=== PATIENT | female | born 1930 | race Caucasian/White ===

== ENCOUNTER 2017-05-05 11:21 | Inpatient (IN) ==
[2017-05-05] MEDS ORDERED: ALBUTEROL/IPRATROPIUM 3 ML NEB RESP TX PRN (11:27)
[2017-05-05] MEDS ORDERED: ACETAMINOPHEN 325 MG TABLET PO PRN (11:27)
--- NOTE | 2017-05-05 12:03 | Pulmonology History & Physical ---
History of Present Illness Chief complaint: acute bronchitis with bronchospasm, outpt tx failure, SOB and wheezing History of present illness: SAMUEL Adams acting as scribe for Dr. Kishor Willoughby. Ms. Schwartz is a 86 year old /White female admitted today 05/05/17 as a direct admit [place] [facility] She presented to her PCP Dr. Sims office today with severe acute shortness of breath and wheezing that had acutely worsened early this AM. Dr. Sims consulted Dr. Willoughby as she is a patient of myself and Dr. Willoughby for pulmonary. Upon chest exam in the clinic she was found to have severe restricted air movement throughout with severe inspiratory and expiratory wheezing and accessory muscle use. She has been treated by Dr. Willoughby and myself as an outpatient for bronchitis since the beginning of this month with 2 rounds of antibiotics including Zithromax and Ceftin, along with steroids, breathing treatments, mucinex, and singulair. Patient reports she was improved until about 2 days ago she began coughing up yellow thick sputum again and acutely worsened this morning unable to produce any sputum so she came as a walk in to see Dr. Sims. Due to the severity of her symptoms combined with her past medical history and recent outpatient treatment decision was made to admit today to inpatient for further evaluation and treatment. She denies any cardiac angina, palpitations, reflux, dysphagia, syncope or near syncope, bleeding from any site, and symptoms of TIA. The remainder of the review of systems is negative. ALLERGIES: NO KNOWN DRUG ALLERGIES Home Medicines: ASA 81mg daily, Calcium 1,250mg daily, Clonazepam 1mg at bedtime , Vitamin B12 1,000mcg injection monthly, Fish Oil 500-100mg daily, Flonase nasal spray 1 spray each nostril daily, Gabapentin 300mg daily, Hydrochlorothiazide 25mg daily, Hyzaar 50-12.5mg daily, Lidoderm 5% topical patch daily, Multivitamin daily, Primidone 100mg TID, Propanolol 20mg BID, Ventolin HFA 1 puff every 6 hours as needed, Vitamin D 2,000units daily, Duoneb inhalation treatments QID PRN, Prednisone 10mg every other day, Singulair 5mg daily, Tessalon Perles 200mg TID PRN, Mucinex 600mg BID. Past History: COPD/Asthma. Hiatal hernia. Hyperlipidemia. Hypertension. Osteopenia. Peripheral sensory neuropathy. Pulmonary Hypertension. Restless legs syndrome. Central and peripheral tremor. Osteoporosis based on bone density studies done in September 2015. Appendectomy. Allergic sinusitis. Degenerative joint disease. Bronchospastic disease. Pernicious anemia secondary to B12 deficiency. Family History: Her mother had an [place]. Social History: She was a smoker previously. She quit smoking in 1965. She smoked less than 1/2PPD. She is . She denies alcohol. Labs and CXR are pending. Exam (Pulmonay) H&P - Constitutional Exam: Psychiatric: Awake, alert oriented x 3. Acutely ill appearing. Neurological: Cranial nerves intact with decreased hearing acuity bilaterally. Long tract motor function is intact. Sensory and gait were not tested. HEENT: Pupils, irises, sclera, conjunctiva and eyelids are normal. The face is symmetrical with no rash and no masses. Nares normal. Nasal tubinates are erythematous and swollen. Ears deferred. Lips, tongue, pharynx, oral mucosa normal. Neck: Symmetrical and kyphotic. Thyroid was not palpated. Lymphatic: there is no submandibular, cervical, supraclavicular, or epitrochlear adenopathy. Chest: Chest is symmetrical and kyphotic. She severely restricted air movement throughout with prominent inspiratory and expiratory wheezing throughout. Accessory muscle use noted with breathing. Heart: Regular rate and rhythm. No murmurs or gallops. Abdomen: Nontender, nondistended, no appreciable organomegaly. Bowel sounds normal. Musculoskeletal: Age appropriate loss of the normal curvature of the cervical thoracic and lumbar spine. Extremities: No clubbing edema or evidence of deep venous thrombophlebitis. Arterial exam: Carotids decreased. No bruits. Upper and lower extremity pulses palpable. Venous exam: Normal. Skin: Skin of the exposed examined areas no cancerous or infectious lesions. Multiple areas of purpura present on the dorsum of both upper extremities. The remainder of the physical exam is negative. Impression: 1. Acute bronchitis with bronchospasm, refractory to outpatient treatment. 2. Severe shortness of breath and wheezing secondary to #1. 3. Bronchospastic airway disease. 4. History of COPD/Asthma. 5. Hypertension 6. Central and peripheral tremor. 7. See past history. Plan: 1. Admit to inpatient for further evaluation and treatment. 2. IV Aminophyllin bolus 125mg over 4 hours then 8mg/hr continuous. Theophylline level daily. 3. IV Levaquin and Fortaz due to outpt tx failure. 4. Sputum for gram stain C&S, Legionella, Cold agglutinins, Labs as ordered. 5. CXR today, repeat Monday. 6. ID and continue home meds. 7. See orders.
[2017-05-05 12:47] LABS: Basophils % 0.7 % (0.0-0.8); Eosinophils # 0.7 10*3/uL (0.0-0.87); Eosinophils % 12.4 % (0.00-10.9); Hematocrit 34.8 VOL% (35.7-47.0); Hemoglobin 11.8 GM/DL (12.0-16.0); Immature Granulocytes % 0.4 %; Immature Granulocytes Absolute 0.02 #; Lymphocytes # 1.1 10*3/uL (1.4-4.0); Mean Corpuscular HGB Conc 33.9 GM/DL (32-36); Mean Corpuscular Hemoglobin 33 PG (27-34); Mean Corpuscular Volume 96.9 FL (87-102); Mean Platelet Volume 9.6 FL (9.6-12.0); Monocytes # 0.5 10*3/uL (0.11-0.8); Monocytes % 8.3 % (1.7-12.7); Neutrophils # 3.3 10*3/uL (1.4-7.4); Neutrophils % 58.2 % (38.7-73.9); Platelet Count 267 T/CUMM (130-400); Red Blood Count 3.59 MC/CUMM (3.8-5.5); Red Cell Distribution Width 12.4 % (9.3-17.3); White Blood Count 5.7 T/CUMM (4-12)
[2017-05-05 13:28] LABS: Alanine Aminotransferase 21 U/L (13-56); Albumin 3.4 G/DL (3.4-5.0); Alkaline Phosphatase 88 U/L (45-117); Aspartate Amino Transferase 18 U/L (0-37); Bilirubin,Total < 0.39 MG/DL (0.2-1.0); Blood Urea Nitrogen 16 MG/DL (7-18); Calcium 8.8 MG/DL (8.5-10.1); Glucose 113 MG/DL (74-106); Magnesium 2.1 MG/DL (1.8-2.4); Osmolality,Calculated 267.4 MOS/KG (273-304); Potassium 3.9 MMOL/L (3.5-5.1); Sodium 133 MMOL/L (136-145); Total Protein 6.5 G/DL (6.4-8.3)
[2017-05-05] MEDS ORDERED: AMINOPHYLLINE 125 MG in SODIUM CHLORIDE 0.9% 100 ML IV ONE (13:30)
[2017-05-05] MEDS: ALBUTEROL/IPRATROPIUM 3 ML NEB RESP TX SCH ×2 (13:53→19:03)
[2017-05-05] MEDS: methylPREDNISolone SOD SUC 125 MG/2 ML VIAL IV SCH ×2 (14:15→23:57)
[2017-05-05] MEDS: LEVOFLOXACIN INJ 250 MG in PREMIX 1 EACH IV SCH (14:16)
--- NOTE | 2017-05-05 14:16 | EKG Report ---
Stationary ECG Study [facility] Test Date: 05/05/2017 2:15:03 PM Pat Name: YOAN BARRETT Department: Room: 533 Gender: F Buffing Machine Operator: : [id number] Requested by: Ramses Givens Order Number: [id number] Reading MD: TR NAVA Intervals [place] Rate: 60 P: 64 WY: 130 QRS: 69 QRSD: 97 T: 78 QT: 376 QTc: 376 Interpretive Statements SINUS RHYTHM POSSIBLE RIGHT VENTRICULAR CONDUCTION DELAY MODERATE ST DEPRESSION Electronically Signed On 05-05-17 19:16:02 CDT by TR NAVA [email or web address]
[2017-05-05] MEDS: MONTELUKAST 10 MG TABLET PO SCH (14:26)
--- NOTE | 2017-05-05 14:59 | XRay Report ---
Chest, 2 views History is short of breath The heart is mildly enlarged The lungs are diffusely hyperexpanded. Patient is rotated exaggerating hilar contours nodular density in the right infrahilar region likely a vein seen on prior CT. No corresponding density seen on the lateral film. No confluent infiltrate is seen. Impression: 1. Mild cardiomegaly 2. Pulmonary hyperexpansion without acute infiltrate PROCEDURE INTERPRETED AT [facility] DEPARTMENT OF RADIOLOGY Final Report Signed by: Dr. Sharonda Michael
[2017-05-05] MEDS: AMINOPHYLLINE 500 MG in SODIUM CHLORIDE 0.9% 480 ML IV SCH (17:42)
[2017-05-05] MEDS: PRIMIDONE 50 MG TABLET PO SCH ×2 (17:43→21:36)
[2017-05-05 17:52] LABS: Apearance,Urine CLEAR (Clear); Bilirubin,Urine Negative (Negative); Blood, Urine Negative (Negative); Glucose,Urine (UA) Negative (Negative); Ketones,Urine Negative (Negative); Nitrite,Urine Negative (Negative); Protein,Urine Negative; RBC,Urine <1 /HPF (0-4); Squamous Epithelial Cell,Urine Occasional /HPF (0-10); Urine Color Straw (Yellow); Urine Specific Gravity 1.004 (1.001-1.035); Urine Urobilinogen < 2.0 EU/DL (0.2-1.0); WBC,Urine <1 /HPF (0-6)
[2017-05-05 18:16] LABS: Eosinophils 9 % (0-10); Lymphocytes 12 % (20-55); Platelet Estimate Normal; Segmented Neutrophils 77 % (50-85); Total Cells Counted 100
[2017-05-05] MEDS: clonazePAM 0.5 MG TABLET PO SCH (21:30)
[2017-05-05] MEDS: PROPRANOLOL 20 MG TABLET PO SCH (21:30)
[2017-05-06] MEDS: AMINOPHYLLINE 500 MG in SODIUM CHLORIDE 0.9% 480 ML IV SCH ×2 (06:00→17:28)
[2017-05-06 06:45] LABS: Basophils % 0.2 % (0.0-0.8); Eosinophils # 0.1 10*3/uL (0.0-0.87); Eosinophils % 0.8 % (0.00-10.9); Hematocrit 31.5 VOL% (35.7-47.0); Hemoglobin 11.2 GM/DL (12.0-16.0); Immature Granulocytes % 0.5 %; Immature Granulocytes Absolute 0.03 #; Lymphocytes # 0.9 10*3/uL (1.4-4.0); Lymphocytes % 13.3 % (21.3-54.2); Mean Corpuscular HGB Conc 35.6 GM/DL (32-36); Mean Corpuscular Hemoglobin 33 PG (27-34); Mean Corpuscular Volume 93.8 FL (87-102); Mean Platelet Volume 10.4 FL (9.6-12.0); Monocytes # 0.2 10*3/uL (0.11-0.8); Monocytes % 2.9 % (1.7-12.7); Neutrophils # 5.3 10*3/uL (1.4-7.4); Neutrophils % 82.3 % (38.7-73.9); Platelet Count 235 T/CUMM (130-400); Red Blood Count 3.36 MC/CUMM (3.8-5.5); Red Cell Distribution Width 12.1 % (9.3-17.3); White Blood Count 6.5 T/CUMM (4-12)
[2017-05-06 07:26] LABS: Calcium 8.4 MG/DL (8.5-10.1); Osmolality,Calculated 262.7 MOS/KG (273-304); Potassium 4.2 MMOL/L (3.5-5.1)
[2017-05-06] MEDS: ALBUTEROL/IPRATROPIUM 3 ML NEB RESP TX SCH ×4 (07:30→20:30)
[2017-05-06] MEDS: MULTIVITAMIN (BEROCCA) TABLET PO SCH (09:16)
[2017-05-06] MEDS: LOSARTAN/HCTZ 50-12.5 MG TABLET PO SCH (09:16)
[2017-05-06] MEDS: hydroCHLOROthiazide 25 MG TABLET PO SCH (09:16)
[2017-05-06] MEDS: ASPIRIN EC 81 MG TABLET PO SCH (09:16)
[2017-05-06] MEDS: PRIMIDONE 50 MG TABLET PO SCH ×3 (09:16→20:40)
[2017-05-06] MEDS: FLUTICASONE 50 MCG NASAL SPRAY 16 GM BOTTLE BOTH NARES SCH (09:16)
[2017-05-06] MEDS: MONTELUKAST 10 MG TABLET PO SCH (09:16)
[2017-05-06] MEDS: GABAPENTIN 300 MG CAPSULE PO SCH (09:16)
[2017-05-06] MEDS: CALCIUM (CARBONATE)/VITAMIN D 500 MG-200 UNIT TABLET PO SCH (09:16)
[2017-05-06] MEDS: LIDOCAINE 5% PATCH TRANSDERM SCH (09:17)
[2017-05-06] MEDS: PROPRANOLOL 20 MG TABLET PO SCH ×2 (09:17→20:40)
--- NOTE | 2017-05-06 10:48 | Pulmonology Progress Note ---
Pulmonary - PN: Subj Interval history: This 86-year-old female was admitted with exacerbation of COPD and asthma. She does have a history of pulmonary hypertension. She feels a little better today but is still wheezing and coughing. Exam (Progress Note) - Constitutional Vitals: Period Temp Pulse Resp BP Sys/Phoenix Pulse Ox Last 24 Hr 97.3 F-98.5 F 61-77 18-22 111-156/45-79 91-98 Exam: Patient is alert and oriented. Vital signs normal. Pupils react to light. Throat is clear. Neck supple no bruits. Chest reveals some prolonged expiratory phase and mild expiratory wheezing and rhonchi. Heart normal rate and rhythm no murmurs. Abdomen is soft nontender no masses. Extremities no clubbing cyanosis or edema. Calves nontender. Results - Labs CBC & BMP: 05/06/17 06:23 05/06/17 06:23 Lab Results: I have reviewed the past 24 hour labs - Diagnostic Findings Procedure: Chest x-ray: image reviewed by me (Lungs are clear.) Assessment and Plan (1) COPD with acute exacerbation Status: Acute Assessment and plan: Patient will continue on corticosteroids, nebulized bronchodilators, intravenous antibiotics. Also on theophylline. Current Visit: Yes
[2017-05-06] MEDS: methylPREDNISolone SOD SUC 125 MG/2 ML VIAL IV SCH (12:27)
[2017-05-06] MEDS: LEVOFLOXACIN INJ 250 MG in PREMIX 1 EACH IV SCH (14:10)
[2017-05-06] MEDS: clonazePAM 0.5 MG TABLET PO SCH (20:40)
[2017-05-06] MEDS: BENZONATATE 100 MG CAPSULE PO PRN (20:40)
[2017-05-07] MEDS: methylPREDNISolone SOD SUC 125 MG/2 ML VIAL IV SCH ×2 (00:08→12:06)
[2017-05-07 07:06] LABS: Basophils % 0.2 % (0.0-0.8); Eosinophils # 0.1 10*3/uL (0.0-0.87); Eosinophils % 1.1 % (0.00-10.9); Hematocrit 32.5 VOL% (35.7-47.0); Hemoglobin 11.1 GM/DL (12.0-16.0); Immature Granulocytes % 0.5 %; Immature Granulocytes Absolute 0.03 #; Lymphocytes # 0.7 10*3/uL (1.4-4.0); Lymphocytes % 11.8 % (21.3-54.2); Mean Corpuscular HGB Conc 34.2 GM/DL (32-36); Mean Corpuscular Hemoglobin 32 PG (27-34); Mean Corpuscular Volume 94.5 FL (87-102); Mean Platelet Volume 10.4 FL (9.6-12.0); Monocytes # 0.2 10*3/uL (0.11-0.8); Monocytes % 2.4 % (1.7-12.7); Neutrophils # 5.3 10*3/uL (1.4-7.4); Platelet Count 239 T/CUMM (130-400); Red Blood Count 3.44 MC/CUMM (3.8-5.5); Red Cell Distribution Width 12.3 % (9.3-17.3); White Blood Count 6.3 T/CUMM (4-12)
[2017-05-07] MEDS: ALBUTEROL/IPRATROPIUM 3 ML NEB RESP TX SCH ×4 (07:20→19:49)
[2017-05-07 07:41] LABS: Calcium 8.2 MG/DL (8.5-10.1); Osmolality,Calculated 269.2 MOS/KG (273-304); Potassium 4.1 MMOL/L (3.5-5.1)
[2017-05-07] MEDS: MONTELUKAST 10 MG TABLET PO SCH (09:05)
[2017-05-07] MEDS: ASPIRIN EC 81 MG TABLET PO SCH (09:05)
[2017-05-07] MEDS: MULTIVITAMIN (BEROCCA) TABLET PO SCH (09:05)
[2017-05-07] MEDS: CALCIUM (CARBONATE)/VITAMIN D 500 MG-200 UNIT TABLET PO SCH (09:05)
[2017-05-07] MEDS: GABAPENTIN 300 MG CAPSULE PO SCH (09:06)
[2017-05-07] MEDS: PRIMIDONE 50 MG TABLET PO SCH ×3 (09:06→21:39)
[2017-05-07] MEDS: LOSARTAN/HCTZ 50-12.5 MG TABLET PO SCH (09:07)
[2017-05-07] MEDS: PROPRANOLOL 20 MG TABLET PO SCH ×2 (09:07→21:40)
[2017-05-07] MEDS: hydroCHLOROthiazide 25 MG TABLET PO SCH (09:08)
[2017-05-07] MEDS: LIDOCAINE 5% PATCH TRANSDERM SCH (09:08)
[2017-05-07] MEDS: FLUTICASONE 50 MCG NASAL SPRAY 16 GM BOTTLE BOTH NARES SCH (09:10)
--- NOTE | 2017-05-07 10:47 | Pulmonology Progress Note ---
Pulmonary - PN: Subj Interval history: This 86-year-old female was admitted with exacerbation of COPD and asthma. She does have a history of pulmonary hypertension. She feels a little better today but is still wheezing and coughing. 05/07/2017 patient is still having some bronchospasm. Her theophylline level is quite low when I will double the dose. Recheck theophylline level tomorrow. Still on a low dose. Exam (Progress Note) - Constitutional Vitals: Period Temp Pulse Resp BP Sys/Phoenix Pulse Ox Last 24 Hr 96.4 F-98.1 F 54-79 18-20 117-155/56-79 91-98 Exam: Patient is alert and oriented. Vital signs normal. Pupils react to light. Throat is clear. Neck supple no bruits. Chest reveals some prolonged expiratory phase and mild expiratory wheezing and rhonchi. Heart normal rate and rhythm no murmurs. Abdomen is soft nontender no masses. Extremities no clubbing cyanosis or edema. Calves nontender. Results - Labs CBC & BMP: 05/07/17 05:44 05/07/17 05:44 Lab Results: I have reviewed the past 24 hour labs Assessment and Plan (1) COPD with acute exacerbation Status: Acute Assessment and plan: Patient will continue on corticosteroids, nebulized bronchodilators, intravenous antibiotics. Also on theophylline. 05/07/2017 patient still having some expiratory rhonchi and wheezes. Increase Aminophyllin. Theophylline level was quite low Current Visit: Yes
[2017-05-07] MEDS: LEVOFLOXACIN INJ 250 MG in PREMIX 1 EACH IV SCH (14:42)
[2017-05-07] MEDS: AMINOPHYLLINE 500 MG in SODIUM CHLORIDE 0.9% 480 ML IV SCH (15:59)
[2017-05-07] MEDS: clonazePAM 0.5 MG TABLET PO SCH (21:42)
[2017-05-07] MEDS: BENZONATATE 100 MG CAPSULE PO PRN (21:59)
[2017-05-08] MEDS: methylPREDNISolone SOD SUC 125 MG/2 ML VIAL IV SCH ×3 (00:20→23:41)
[2017-05-08 06:45] LABS: Basophils % 0.3 % (0.0-0.8); Eosinophils # 0.2 10*3/uL (0.0-0.87); Eosinophils % 2.3 % (0.00-10.9); Hematocrit 35.1 VOL% (35.7-47.0); Hemoglobin 11.9 GM/DL (12.0-16.0); Immature Granulocytes % 0.4 %; Immature Granulocytes Absolute 0.03 #; Lymphocytes # 0.9 10*3/uL (1.4-4.0); Lymphocytes % 12.4 % (21.3-54.2); Mean Corpuscular HGB Conc 33.9 GM/DL (32-36); Mean Corpuscular Hemoglobin 32 PG (27-34); Mean Corpuscular Volume 95.6 FL (87-102); Mean Platelet Volume 10.1 FL (9.6-12.0); Monocytes # 0.2 10*3/uL (0.11-0.8); Monocytes % 2.9 % (1.7-12.7); Neutrophils % 81.7 % (38.7-73.9); Platelet Count 267 T/CUMM (130-400); Red Blood Count 3.67 MC/CUMM (3.8-5.5); Red Cell Distribution Width 12.5 % (9.3-17.3); White Blood Count 7.3 T/CUMM (4-12)
[2017-05-08 07:13] LABS: Calcium 8.6 MG/DL (8.5-10.1); Osmolality,Calculated 274.8 MOS/KG (273-304); Potassium 4.4 MMOL/L (3.5-5.1)
[2017-05-08] MEDS: ALBUTEROL/IPRATROPIUM 3 ML NEB RESP TX SCH ×4 (07:37→19:25)
[2017-05-08] MEDS: MONTELUKAST 10 MG TABLET PO SCH (09:06)
[2017-05-08] MEDS: LIDOCAINE 5% PATCH TRANSDERM SCH (09:06)
[2017-05-08] MEDS: MULTIVITAMIN (BEROCCA) TABLET PO SCH (09:07)
[2017-05-08] MEDS: LOSARTAN/HCTZ 50-12.5 MG TABLET PO SCH (09:07)
[2017-05-08] MEDS: hydroCHLOROthiazide 25 MG TABLET PO SCH (09:07)
[2017-05-08] MEDS: CALCIUM (CARBONATE)/VITAMIN D 500 MG-200 UNIT TABLET PO SCH (09:07)
[2017-05-08] MEDS: PROPRANOLOL 20 MG TABLET PO SCH ×2 (09:07→20:16)
[2017-05-08] MEDS: PRIMIDONE 50 MG TABLET PO SCH ×3 (09:08→20:16)
[2017-05-08] MEDS: GABAPENTIN 300 MG CAPSULE PO SCH (09:08)
[2017-05-08] MEDS: FLUTICASONE 50 MCG NASAL SPRAY 16 GM BOTTLE BOTH NARES SCH (09:08)
[2017-05-08] MEDS: ASPIRIN EC 81 MG TABLET PO SCH (09:08)
--- NOTE | 2017-05-08 11:14 | Pulmonology Progress Note ---
Pulmonary - PN: Subj Interval history: Spencer Ko, [facility]-, acting as scribe for Dr. Kishor Willoughby Ms. Schwartz is an 86-year-old white female who was [facility]. At that time, our impressions were: 1. Acute bronchitis with bronchospasm, refractory to outpatient treatment. 2. Severe shortness of breath and wheezing secondary to #1. 3. Bronchospastic airway disease. 4. History of COPD/Asthma. 5. Hypertension 6. Central and peripheral tremor. 7. See past history. 05/08/2017. The patient was seen today along with Pedro Burk RN. Over the weekend, the patient continued to have some bronchospasm and wheezing. Dr. Winkler doubled her IV Aminophyllin dose. On chest exam today, her expiration is prolonged and her wheezes have improved. Theophylline level is only 4.0. We will increase her Aminophyllin dose to 20 mg/h. She is being followed with daily theophylline levels. Cold agglutinins are negative. Legionella is pending. Sputum Gram stain showed rare gram-positive cocci in pairs. Sputum culture grew no organisms. Medications have been reviewed. We have increased her Aminophyllin dose as above. Labs been reviewed. White count is 7300 with 81.7% segs; H&H 11.9/35.1; platelet count 267,000; creatinine 0.80, BUN 13, electrolytes are normal; theophylline level 4.0 Exam (Progress Note) - Constitutional Vitals: Period Temp Pulse Resp BP Sys/Phoenix Pulse Ox Last 24 Hr 97.2 F-98.3 F 72-87 16-20 110-156/52-79 93-99 Exam: Chest... See above Heart no gallop Abdomen is nontender and nondistended; bowel sounds are positive 4 Extremities with nothing to suggest acute deep venous thrombophlebitis Psychiatric oriented 3 Neurologic long-term motor function is intact Plan: Increase Aminophyllin as above. Continue other present treatment. See orders. Results - Labs CBC & BMP: 05/08/17 05:53 05/08/17 05:53
[2017-05-08] MEDS: LEVOFLOXACIN INJ 250 MG in PREMIX 1 EACH IV SCH (14:47)
[2017-05-08] MEDS: AMINOPHYLLINE 500 MG in SODIUM CHLORIDE 0.9% 480 ML IV SCH (18:19)
[2017-05-08] MEDS: clonazePAM 0.5 MG TABLET PO SCH (20:16)
[2017-05-08] MEDS: BENZONATATE 100 MG CAPSULE PO PRN (20:25)
[2017-05-09] MEDS: BENZONATATE 100 MG CAPSULE PO PRN ×2 (05:08→20:59)
[2017-05-09] MEDS: ALBUTEROL/IPRATROPIUM 3 ML NEB RESP TX SCH ×4 (07:20→19:22)
[2017-05-09] MEDS: ASPIRIN EC 81 MG TABLET PO SCH (09:04)
[2017-05-09] MEDS: MULTIVITAMIN (BEROCCA) TABLET PO SCH (09:04)
[2017-05-09] MEDS: LIDOCAINE 5% PATCH TRANSDERM SCH (09:04)
[2017-05-09] MEDS: MONTELUKAST 10 MG TABLET PO SCH (09:04)
[2017-05-09] MEDS: hydroCHLOROthiazide 25 MG TABLET PO SCH (09:04)
[2017-05-09] MEDS: PROPRANOLOL 20 MG TABLET PO SCH ×2 (09:04→21:00)
[2017-05-09] MEDS: CALCIUM (CARBONATE)/VITAMIN D 500 MG-200 UNIT TABLET PO SCH (09:04)
[2017-05-09] MEDS: GABAPENTIN 300 MG CAPSULE PO SCH ×3 (09:04→21:23)
[2017-05-09] MEDS: PRIMIDONE 50 MG TABLET PO SCH ×3 (09:04→21:00)
[2017-05-09] MEDS: LOSARTAN/HCTZ 50-12.5 MG TABLET PO SCH (09:05)
[2017-05-09] MEDS: FLUTICASONE 50 MCG NASAL SPRAY 16 GM BOTTLE BOTH NARES SCH (09:05)
[2017-05-09] MEDS ORDERED: MAGNESIUM HYDROXIDE SUSP 30 ML UDCUP PO PRN (11:09)
--- NOTE | 2017-05-09 11:29 | Pulmonology Progress Note ---
Pulmonary - PN: Subj Interval history: Spencer Ko, [facility] acting as scribe for Dr. Kishor Willoughby Ms. Schwartz is an 86-year-old white female who was admitted [facility]/05/[facility]. At that time, our impressions were: 1. Acute bronchitis with bronchospasm, refractory to outpatient treatment. 2. Severe shortness of breath and wheezing secondary to #1. 3. Bronchospastic airway disease. 4. History of COPD/Asthma. 5. Hypertension 6. Central and peripheral tremor. 7. See past history. 05/08/2017. The patient was seen today along with Pedro Burk RN. Over the weekend, the patient continued to have some bronchospasm and wheezing. Dr. Winkler doubled her IV Aminophyllin dose. On chest exam today, her expiration is prolonged and her wheezes have improved. Theophylline level is only 4.0. We will increase her Aminophyllin dose to 20 mg/h. She is being followed with daily theophylline levels. Cold agglutinins are negative. Legionella is pending. Sputum Gram stain showed rare gram-positive cocci in pairs. Sputum culture grew no organisms. Medications have been reviewed. We have increased her Aminophyllin dose as above. Labs been reviewed. White count is 7300 with 81.7% segs; H&H 11.9/35.1; platelet count 267,000; creatinine 0.80, BUN 13, electrolytes are normal; theophylline level 4.0 05/09/2017. The patient was seen today along with Katarzyna Falk RN. Yesterday the patient's IV Aminophyllin dose was increased to 20 mg/h. Theophylline level today is 5.2. On chest exam, her peripheral wheezes have markedly improved. She continues to have loose large airway congestion that she needs to expectorate. Will add Acapella to all of her inhalation treatments see if we can help mobilize her secretions. Today she complains of constipation. This is not a problem for her in the outpatient setting by her report. We will try as needed milk of magnesia and follow-up her response. She also complains of left anterior upper quadrant pain that is reproducible with palpation. This is most likely strain secondary to excessive coughing. This be treated with a Flector patch. She is not on Lovenox and there is no hematoma. There is no rash either. Medications have been reviewed. Labs been reviewed. Theophylline level 5.2. Exam (Progress Note) - Constitutional Vitals: Period Temp Pulse Resp BP Sys/Phoenix Pulse Ox Last 24 Hr 96.7 F-98.0 F 70-94 14-20 128-151/55-84 93-99 Exam: Chest... See above Heart no gallop Abdomen... See above; nondistended; bowel sounds are positive 4 Extremities with nothing to suggest acute deep venous thrombophlebitis Psychiatric oriented 3 Neurologic long-term motor function is intact Plan: Continue present treatment. Add Acapella to all breathing treatments. As needed milk of magnesia for constipation. Flector patch as above. See orders. Results - Labs CBC & BMP: 05/08/17 05:53 05/08/17 05:53 Specialty Discharge - Follow Up or Referrals
[2017-05-09] MEDS: DICLOFENAC 1.3% PATCH 5/PACK TRANSDERM SCH ×2 (12:17→21:01)
[2017-05-09] MEDS: methylPREDNISolone SOD SUC 125 MG/2 ML VIAL IV SCH (12:17)
[2017-05-09] MEDS: LEVOFLOXACIN INJ 250 MG in PREMIX 1 EACH IV SCH (15:01)
[2017-05-09] MEDS: AMINOPHYLLINE 500 MG in SODIUM CHLORIDE 0.9% 480 ML IV SCH (19:26)
[2017-05-09] MEDS: clonazePAM 0.5 MG TABLET PO SCH (20:59)
[2017-05-10] MEDS: methylPREDNISolone SOD SUC 125 MG/2 ML VIAL IV SCH ×2 (00:08→14:11)
[2017-05-10] MEDS: BENZONATATE 100 MG CAPSULE PO PRN (04:51)
[2017-05-10] MEDS: ALBUTEROL/IPRATROPIUM 3 ML NEB RESP TX SCH ×4 (07:26→19:40)
[2017-05-10] MEDS: MONTELUKAST 10 MG TABLET PO SCH (09:14)
[2017-05-10] MEDS: PRIMIDONE 50 MG TABLET PO SCH ×3 (09:14→21:32)
[2017-05-10] MEDS: ASPIRIN EC 81 MG TABLET PO SCH (09:14)
[2017-05-10] MEDS: MULTIVITAMIN (BEROCCA) TABLET PO SCH (09:14)
[2017-05-10] MEDS: LOSARTAN/HCTZ 50-12.5 MG TABLET PO SCH (09:14)
[2017-05-10] MEDS: CALCIUM (CARBONATE)/VITAMIN D 500 MG-200 UNIT TABLET PO SCH (09:14)
[2017-05-10] MEDS: hydroCHLOROthiazide 25 MG TABLET PO SCH (09:14)
[2017-05-10] MEDS: PROPRANOLOL 20 MG TABLET PO SCH ×2 (09:14→21:31)
[2017-05-10] MEDS: FLUTICASONE 50 MCG NASAL SPRAY 16 GM BOTTLE BOTH NARES SCH (09:15)
[2017-05-10] MEDS: DICLOFENAC 1.3% PATCH 5/PACK TRANSDERM SCH ×2 (09:15→21:30)
[2017-05-10] MEDS: LIDOCAINE 5% PATCH TRANSDERM SCH (09:15)
[2017-05-10] MEDS: DORNASE ALFA 2.5 MG/2.5 ML VIAL RESP TX SCH ×2 (11:11→19:39)
--- NOTE | 2017-05-10 11:32 | Pulmonology Progress Note ---
Pulmonary - PN: Subj Interval history: Spencer Ko, [facility] acting as scribe for Dr. Kishor Willoughby Ms. Schwartz is an 86-year-old white female who was admitted 05/05/2017 from [facility]. At that time, our impressions were: 1. Acute bronchitis with bronchospasm, refractory to outpatient treatment. 2. Severe shortness of breath and wheezing secondary to #1. 3. Bronchospastic airway disease. 4. History of COPD/Asthma. 5. Hypertension 6. Central and peripheral tremor. 7. See past history. 05/08/2017. The patient was seen today along with Pedro Burk RN. Over the weekend, the patient continued to have some bronchospasm and wheezing. Dr. Winkler doubled her IV Aminophyllin dose. On chest exam today, her expiration is prolonged and her wheezes have improved. Theophylline level is only 4.0. We will increase her Aminophyllin dose to 20 mg/h. She is being followed with daily theophylline levels. Cold agglutinins are negative. Legionella is pending. Sputum Gram stain showed rare gram-positive cocci in pairs. Sputum culture grew no organisms. Medications have been reviewed. We have increased her Aminophyllin dose as above. Labs been reviewed. White count is 7300 with 81.7% segs; H&H 11.9/35.1; platelet count 267,000; creatinine 0.80, BUN 13, electrolytes are normal; theophylline level 4.0 05/09/2017. The patient was seen today along with Katarzyna Falk RN. Yesterday the patient's IV Aminophyllin dose was increased to 20 mg/h. Theophylline level today is 5.2. On chest exam, her peripheral wheezes have markedly improved. She continues to have loose large airway congestion that she needs to expectorate. Will add Acapella to all of her inhalation treatments see if we can help mobilize her secretions. Today she complains of constipation. This is not a problem for her in the outpatient setting by her report. We will try as needed milk of magnesia and follow-up her response. She also complains of left anterior upper quadrant pain that is reproducible with palpation. This is most likely strain secondary to excessive coughing. This be treated with a Flector patch. She is not on Lovenox and there is no hematoma. There is no rash either. Medications have been reviewed. Labs been reviewed. Theophylline level 5.2. 05/10/2017. Patient was seen today along with Judy Finley RN. Mrs. Schwartz is doing reasonably well today, but continues to have loose large airway congestion with difficulty mobilizing her secretions. Yesterday we started Acapella and today will add Pulmozyme twice daily. Repeat chest x-ray has been ordered for tomorrow. She continues on IV Aminophyllin. Her high-pitched peripheral wheezes are markedly improved. Theophylline level is 6.2. Sputum Gram stain showed rare gram-positive cocci, but sputum culture grew no organisms. Flector patch that was applied yesterday markedly improved her left upper quadrant pain. Cold agglutinins were negative. Legionella was negative. Medications have been reviewed. Pulmozyme was started today. Labs been reviewed. Exam (Progress Note) - Constitutional Vitals: Period Temp Pulse Resp BP Sys/Phoenix Pulse Ox Last 24 Hr 96.9 F-97.9 F 68-102 14-20 126-136/49-84 92-99 Exam: Chest... See above Heart no gallop Abdomen... Nontender and nondistended; bowel sounds are positive 4 Extremities with nothing to suggest acute deep venous thrombophlebitis Psychiatric oriented 3 Neurologic long-term motor function is intact Plan: Continue present treatment. Pulmozyme twice daily. Repeat chest x-ray tomorrow. See orders. Results - Labs CBC & BMP: 05/08/17 05:53 05/08/17 05:53 Specialty Discharge - Follow Up or Referrals
[2017-05-10] MEDS: LEVOFLOXACIN INJ 250 MG in PREMIX 1 EACH IV SCH (14:12)
[2017-05-10] MEDS: AMINOPHYLLINE 500 MG in SODIUM CHLORIDE 0.9% 480 ML IV SCH (21:29)
[2017-05-10] MEDS: GABAPENTIN 300 MG CAPSULE PO SCH (21:31)
[2017-05-10] MEDS: clonazePAM 0.5 MG TABLET PO SCH (21:32)
[2017-05-11] MEDS: methylPREDNISolone SOD SUC 125 MG/2 ML VIAL IV SCH ×3 (01:55→23:12)
[2017-05-11] MEDS: ALBUTEROL/IPRATROPIUM 3 ML NEB RESP TX SCH ×4 (07:35→19:14)
[2017-05-11] MEDS: DORNASE ALFA 2.5 MG/2.5 ML VIAL RESP TX SCH ×2 (07:37→19:13)
--- NOTE | 2017-05-11 08:47 | XRay Report ---
XR chest 2V Date: 05/11/2017 4:00 AM History: Shortness of breath, wheezing Comparison: 05/05/2017 Technique: PA and lateral chest Findings: The heart is small and compressed by the over expanded lungs. Diffuse arterial calcifications. Chronic scarring in the lungs with atelectasis at the left lung base. Osteopenia with degenerative changes. Impression: COPD with chronic scarring. Minimal atelectasis at the left lung base. Osteopenia. PROCEDURE INTERPRETED AT [facility] DEPARTMENT OF RADIOLOGY Final Report Signed by: Dr. Reny Rosenberg
[2017-05-11] MEDS: LIDOCAINE 5% PATCH TRANSDERM SCH (09:30)
[2017-05-11] MEDS: DICLOFENAC 1.3% PATCH 5/PACK TRANSDERM SCH ×2 (09:32→23:13)
[2017-05-11] MEDS: hydroCHLOROthiazide 25 MG TABLET PO SCH (09:33)
[2017-05-11] MEDS: MULTIVITAMIN (BEROCCA) TABLET PO SCH (09:33)
[2017-05-11] MEDS: CALCIUM (CARBONATE)/VITAMIN D 500 MG-200 UNIT TABLET PO SCH (09:33)
[2017-05-11] MEDS: PROPRANOLOL 20 MG TABLET PO SCH ×2 (09:33→22:52)
[2017-05-11] MEDS: LOSARTAN/HCTZ 50-12.5 MG TABLET PO SCH (09:34)
[2017-05-11] MEDS: ASPIRIN EC 81 MG TABLET PO SCH (09:34)
[2017-05-11] MEDS: PRIMIDONE 50 MG TABLET PO SCH ×4 (09:34→22:52)
[2017-05-11] MEDS: MONTELUKAST 10 MG TABLET PO SCH (09:34)
[2017-05-11] MEDS: FLUTICASONE 50 MCG NASAL SPRAY 16 GM BOTTLE BOTH NARES SCH (09:40)
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
[2017-05-11] MEDS: LEVOFLOXACIN INJ 250 MG in PREMIX 1 EACH IV SCH (13:48)
[2017-05-11] MEDS: THEOPHYLLINE ER (24 HR) 200 MG CAPSULE PO SCH (17:04)
[2017-05-11] MEDS: clonazePAM 0.5 MG TABLET PO SCH (22:52)
[2017-05-11] MEDS: GABAPENTIN 300 MG CAPSULE PO SCH (22:52)
[2017-05-12] MEDS: ALBUTEROL/IPRATROPIUM 3 ML NEB RESP TX SCH ×2 (08:18→11:51)
[2017-05-12] MEDS: DORNASE ALFA 2.5 MG/2.5 ML VIAL RESP TX SCH (08:20)
[2017-05-12] MEDS: DICLOFENAC 1.3% PATCH 5/PACK TRANSDERM SCH (09:18)
[2017-05-12] MEDS: PROPRANOLOL 20 MG TABLET PO SCH (09:20)
[2017-05-12] MEDS: PRIMIDONE 50 MG TABLET PO SCH (09:20)
[2017-05-12] MEDS: CALCIUM (CARBONATE)/VITAMIN D 500 MG-200 UNIT TABLET PO SCH (09:20)
[2017-05-12] MEDS: MULTIVITAMIN (BEROCCA) TABLET PO SCH (09:20)
[2017-05-12] MEDS: LOSARTAN/HCTZ 50-12.5 MG TABLET PO SCH (09:20)
[2017-05-12] MEDS: BENZONATATE 100 MG CAPSULE PO PRN (09:20)
[2017-05-12] MEDS: THEOPHYLLINE ER (24 HR) 200 MG CAPSULE PO SCH (09:20)
[2017-05-12] MEDS: hydroCHLOROthiazide 25 MG TABLET PO SCH (09:20)
[2017-05-12] MEDS: ASPIRIN EC 81 MG TABLET PO SCH (09:21)
[2017-05-12] MEDS: FLUTICASONE 50 MCG NASAL SPRAY 16 GM BOTTLE BOTH NARES SCH (09:21)
[2017-05-12] MEDS: MONTELUKAST 10 MG TABLET PO SCH (09:21)
[2017-05-12] MEDS: LIDOCAINE 5% PATCH TRANSDERM SCH (09:22)
--- NOTE | 2017-05-12 11:58 | Pulmonology Progress Note ---
Pulmonary - PN: Subj Interval history: Spencer Ko, [facility] acting as scribe for Dr. Kishor Willoughby Ms. Schwartz is an 86-year-old white female who was admitted [facility]/05/2017 from [facility]. At that time, our impressions were: 1. Acute bronchitis with bronchospasm, refractory to outpatient treatment. 2. Severe shortness of breath and wheezing secondary to #1. 3. Bronchospastic airway disease. 4. History of COPD/Asthma. 5. Hypertension 6. Central and peripheral tremor. 7. See past history. 05/08/2017. The patient was seen today along with Pedro Burk RN. Over the weekend, the patient continued to have some bronchospasm and wheezing. Dr. Winkler doubled her IV Aminophyllin dose. On chest exam today, her expiration is prolonged and her wheezes have improved. Theophylline level is only 4.0. We will increase her Aminophyllin dose to 20 mg/h. She is being followed with daily theophylline levels. Cold agglutinins are negative. Legionella is pending. Sputum Gram stain showed rare gram-positive cocci in pairs. Sputum culture grew no organisms. Medications have been reviewed. We have increased her Aminophyllin dose as above. Labs been reviewed. White count is 7300 with 81.7% segs; H&H 11.9/35.1; platelet count 267,000; creatinine 0.80, BUN 13, electrolytes are normal; theophylline level 4.0 05/09/2017. The patient was seen today along with Katarzyna Falk RN. Yesterday the patient's IV Aminophyllin dose was increased to 20 mg/h. Theophylline level today is 5.2. On chest exam, her peripheral wheezes have markedly improved. She continues to have loose large airway congestion that she needs to expectorate. Will add Acapella to all of her inhalation treatments see if we can help mobilize her secretions. Today she complains of constipation. This is not a problem for her in the outpatient setting by her report. We will try as needed milk of magnesia and follow-up her response. She also complains of left anterior upper quadrant pain that is reproducible with palpation. This is most likely strain secondary to excessive coughing. This be treated with a Flector patch. She is not on Lovenox and there is no hematoma. There is no rash either. Medications have been reviewed. Labs been reviewed. Theophylline level 5.2. 05/10/2017. Patient was seen today along with Judy Finley RN. Mrs. Schwartz is doing reasonably well today, but continues to have loose large airway congestion with difficulty mobilizing her secretions. Yesterday we started Acapella and today will add Pulmozyme twice daily. Repeat chest x-ray has been ordered for tomorrow. She continues on IV Aminophyllin. Her high-pitched peripheral wheezes are markedly improved. Theophylline level is 6.2. Sputum Gram stain showed rare gram-positive cocci, but sputum culture grew no organisms. Flector patch that was applied yesterday markedly improved her left upper quadrant pain. Cold agglutinins were negative. Legionella was negative. Medications have been reviewed. Pulmozyme was started today. Labs been reviewed. 05/11/2017. The patient was seen today along with her daughter, her daughter's friend, and Pedro Burk RN. Patient refused her most recent inhalation treatment. I am unsure why. Nonetheless, chest exam she continues to have loose large airway congestion, we have encouraged her to comply with all of her inhalation treatments. Her daughter understands the rationale for this. Her high-pitched peripheral wheezes have now resolved, so we will convert her IV Aminophyllin to oral theophylline 200 mg p.o. twice daily. Theophylline level is 6.0. This is a therapeutic dose for her. The patient is concerned that she may not be able to fully take care of herself when she gets home, but she is not interested in swing bed. Will ask social media campaign manager to speak with her regarding home health. She is agreeable to having home health. Apparently, her daughter does not live close to her. Medications have been reviewed. We will stop IV Aminophyllin today and convert her to oral theophylline as above. Labs been reviewed. Theophylline level 6.0. 05/12/2017. Patient was seen today along with her daughter and Katarzyna Falk RN. On chest exam, the patient's wheezes have now completely resolved. She still has loose large airway congestion that she will continue to expectorate, but this will decrease over time. We have asked her to use her nebulizer at least twice daily, but in the short-term we would prefer if she used it at least 3-4 times daily. She has been receiving Tessalon 3 times daily as needed , but her cough is ineffective, so we will change this to 3 times daily scheduled. She has now progressed to the point where she can safely be managed at home. Home health has been arranged. Theophylline level today is 5.3. Medications have been reviewed. Labs been reviewed. Exam (Progress Note) - Constitutional Vitals: Period Temp Pulse Resp BP Sys/[place] Pulse Ox Last 24 Hr 97.4 F-98.8 F 67-90 14-20 120-155/57-76 91-99 Exam: Chest... See above Heart no gallop Abdomen... Nontender and nondistended; bowel sounds are positive 4 Extremities with nothing to suggest acute deep venous thrombophlebitis Psychiatric oriented 3 Neurologic long-term motor function is intact Plan: She is now met maximal hospital benefit and can be safely discharged home. Please see the discharge summary for more information. Results - Labs CBC & BMP: 05/08/17 05:53 05/08/17 05:53 Specialty Discharge - Follow Up or Referrals Follow up with: Aparna Givens CFNP [Advanced Practice Nurse] - (one week (day with Dr. Willoughby there ) with Theophylline level)
[2017-05-12] MEDS: methylPREDNISolone SOD SUC 125 MG/2 ML VIAL IV SCH (12:01)
--- NOTE | 2017-05-12 12:09 | Discharge Summary ---
Hospital Course - Hospital Course Hospital Course: Spencer Ko, [facility], acting as scribe for Dr. Kishor Willoughby Mrs. Schwartz is an 86-year-old white female who was admitted 05/05/2017 from [facility] after presenting to Dr. Sims's office with severe, acute shortness of breath and wheezing. Upon chest exam she was found to have severe restricted air movement with severe inspiratory and expiratory wheezing and accessory muscle use. She had recently been treated as an outpatient for bronchitis and was deemed an outpatient treatment failure. Given her advanced age, multiple comorbidities, and acute illness, it was felt in her best interest to hospitalize her for further evaluation and care. Upon admission, she was started on IV Aminophyllin. Initially, she was started on 8 mg/h, but ultimately this required an increased dose to 20 mg/h. At this dose, over time her high-pitched peripheral wheezes resolved. Her theophylline level at its peak was 6.0 and this resolved her wheezes. She was converted to oral theophylline 200 mg p.o. twice daily and will continue this indefinitely. She was also treated with IV Solu-Medrol, inhalation therapy with DuoNeb's 4 times daily, Pulmozyme twice daily, Acapella, and Singulair. Sputum Gram stain showed rare gram-positive cocci in pairs, but sputum culture grew no organisms. Cold agglutinins and Legionella were negative. She complained of costochondritis of both the right upper chest and left upper quadrant of the abdomen. This was treated successfully with a Flector patch. The patient will be discharged home with home health. She has been scheduled to follow-up with Aparna Givens, nurse practitioner, in approximately 1 week with a theophylline level. She can be seen sooner if needed. She will continue her primary care with Dr. Naila Sims. At discharge, white count is 7300 with 81.7% segs, 12.4% lymphs, and 2.9% monos ; H&H 11.9/35.1 with normal indices and normal red blood cell distribution width ; platelet count 267,000; creatinine 0.80, BUN 13, sodium 137, potassium 4.4, magnesium 2.1; calcium 8.6, albumin 3.4, total protein 6.5; liver function tests within normal limits; TSH and free T4 are normal at 1.510 and 1.04 respectively; theophylline level 5.3; urinalysis showed no evidence of infection. For more information regarding Mrs. Schwartz past medical history, family history , social history, admit labs, admit x-ray and admit exam, please see the admission note dated 05/05/2017. Impression: 1. Acute bronchitis with bronchospasm, refractory to outpatient treatment 2. Severe shortness of breath and wheezing secondary to #1 3. Bronchospastic airway disease 4. History of COPD/Asthma 5. Hypertension 6. Central and peripheral tremor 7. See past history Plan: Duo nebs 4 times daily, Tessalon 200 mg 3 times daily, Klonopin 1 mg at bedtime, Flonase 1 spray in each nostril daily, Neurontin 300 mg at bedtime, B6 600 mg twice daily, Hyzaar 50/12.51 tablet daily, Singulair 10 mg daily, primidone 100 mg 3 times daily, Inderal 20 mg twice daily, theophylline 200 mg twice daily, prednisone 20 mg daily for 5 days then 10 mg daily until her return appointment, Ventolin HFA 2 puffs 4 times daily as needed, and Norvasc 5 mg daily. She has been scheduled to follow-up with Aparna Givens, nurse practitioner, in approximately 1 week with a theophylline level. She could be seen sooner if needed. At that time, attention will be on trying to taper her prednisone. She will continue her routine follow-up care with Dr. Sims. Specialty Discharge - Follow Up or Referrals Follow up with: Aparna Givens CFNP [Advanced Practice Nurse] - (one week (day with Dr. Willoughby there ) with Theophylline level) Discharge Plan - Discharge Data Disposition: Home Health Service Condition at Discharge: Stable Activity: resume usual activities as tolerated - Discharge Medications New Benzonatate [Tessalon] 200 mg PO TID #60 capsule Fluticasone 50 Mcg Nasal [place] [Flonase Nasal [place]] 1 spray BOTH NARES DAILY #1 spray Theophylline ER Cap (24 Hr) [Link-24] 200 mg PO BID W/MEALS #60 capsule guaiFENesin ER TAB [Mucinex] 600 mg PO BID tablet predniSONE TAB [PredniSONE] 10 mg PO DIRECTED #30 tablet Continue Albuterol Sulfate [Ventolin HFA] 2 puffs INH BID Montelukast Sodium 1 tablet PO DAILY Propranolol Tab [Inderal Tab] 20 mg PO BID Amlodipine Besylate 5 mg PO DAILY clonazePAM [Klonopin] 1 mg PO BEDTIME Gabapentin 1 tablet PO DAILY Losartan/Hydrochlorothiazide [Losartan-Hctz 50-12.5 mg Tab] 1 tablet PO DAILY Primidone 100 mg PO TID Discontinued Benzonatate 100 mg PO TID PRN PRN Reason: Cough Losartan/Hctz 50-12.5 [Hyzaar 50-12.5] 1 tablet PO DAILY hydroCHLOROthiazide [Hydrochlorothiazide] 1 tablet PO DAILY - Follow Up or Referral Follow Up: Aparna Givens CFNP [Advanced Practice Nurse] - (one week (day with Dr. Willoughby there ) with Theophylline level) - Forms/Instructions Instructions: Benzonatate (By mouth), Prednisone (By mouth), Theophylline (By mouth), Fluticasone (Into the nose), Chronic Obstructive Pulmonary Disease (DC) Exam - Constitutional Vitals: Period Temp Pulse Resp BP Sys/[place] Pulse Ox Last 24 Hr 97.4 F-98.8 F 67-90 14-20 120-155/57-76 91-99 Discharge Results Labs on day of discharge: Labs from last 24 hours 05/12/17 05:00 Theophylline 5.3 L DS: Provider Date of admission: 05/05/17 11:27 Primary care physician: Naila Sims M.D. Attending physician on admission: Kishor Willoughby MD Consults: 05/11/17 10:51 Consult to Case Mgmt/Social Srvs [CONS] Routine Reason for Case Mgmt/Social Srvs: Discharge Planning Home Health Discharging clinician: JEAN Pereyra
[2017-05-12 14:20] VITALS: BP 164/79
[2017-05-12] MEDS ORDERED: BENZONATATE 100 MG CAPSULE PO SCH (15:00)
== END 2017-05-12 14:21 | disposition home health service (06) | DRG 192 ==
LOC: N.5E 11:57
PROVIDERS: ADMIT Internal Medicine Pulmonary Disease; ATTEND Internal Medicine Pulmonary Disease

== ENCOUNTER 2017-09-10 22:48 | Inpatient (IN) ==
[2017-09-10] MEDS ORDERED: methylPREDNISolone SOD SUC 125 MG/2 ML VIAL IV STA (23:24)
[2017-09-10] MEDS ORDERED: ALBUTEROL/IPRATROPIUM 3 ML NEB RESP TX STA (23:24)
[2017-09-10] MEDS ORDERED: methylPREDNISolone SOD SUC 125 MG/2 ML VIAL ONE (23:51)
[2017-09-10 23:52] LABS: Basophils % 0.4 % (0.0-0.8); Eosinophils # 0.4 10*3/uL (0.0-0.87); Eosinophils % 4.9 % (0.00-10.9); Hematocrit 36.2 VOL% (35.7-47.0); Hemoglobin 12.1 GM/DL (12.0-16.0); Immature Granulocytes % 0.6 %; Immature Granulocytes Absolute 0.05 #; Lymphocytes # 0.8 10*3/uL (1.4-4.0); Lymphocytes % 9.1 % (21.3-54.2); Mean Corpuscular HGB Conc 33.4 GM/DL (32-36); Mean Corpuscular Hemoglobin 32 PG (27-34); Mean Corpuscular Volume 95.8 FL (87-102); Mean Platelet Volume 9.7 FL (9.6-12.0); Monocytes # 0.3 10*3/uL (0.11-0.8); Monocytes % 3.6 % (1.7-12.7); Neutrophils # 7.3 10*3/uL (1.4-7.4); Neutrophils % 81.4 % (38.7-73.9); Platelet Count 264 T/CUMM (130-400); Red Blood Count 3.78 MC/CUMM (3.8-5.5)
[2017-09-11 00:06] LABS: Apearance,Urine CLEAR (Clear); Bilirubin,Urine Negative (Negative); Blood, Urine Negative (Negative); Glucose,Urine (UA) Negative (Negative); Ketones,Urine Negative (Negative); Mucus,Urine Occasional /LPF (Occasional); Nitrite,Urine Negative (Negative); Protein,Urine Negative; Squamous Epithelial Cell,Urine Occasional /HPF (0-10); Urine Color Straw (Yellow); Urine Specific Gravity 1.009 (1.001-1.035); Urine Urobilinogen < 2.0 EU/DL (0.2-1.0); WBC,Urine 1 /HPF (0-6)
[2017-09-11 00:17] LABS: Alanine Aminotransferase 19 U/L (13-56); Albumin 3.3 G/DL (3.4-5.0); Alkaline Phosphatase 96 U/L (45-117); Aspartate Amino Transferase 18 U/L (0-37); Bilirubin,Total < 0.39 MG/DL (0.2-1.0); Blood Urea Nitrogen 23 MG/DL (7-18); Calcium 8.9 MG/DL (8.5-10.1); Glucose 117 MG/DL (74-106); Osmolality,Calculated 266.7 MOS/KG (273-304); Potassium 4.2 MMOL/L (3.5-5.1); Sodium 131 MMOL/L (136-145); Total Protein 6.6 G/DL (6.4-8.3); Troponin I Only < 0.015 NG/ML (0.00-0.045)
[2017-09-11] MEDS ORDERED: ALBUTEROL NEB SOLN 5 MG/ML 20 ML/BOTTLE CONT NEB STA (01:48)
[2017-09-11] MEDS ORDERED: ALBUTEROL 2.5 MG/3 ML NEB RESP TX PRN (03:02)
[2017-09-11] MEDS ORDERED: ACETAMINOPHEN 325 MG TABLET PO PRN (03:06)
[2017-09-11] MEDS ORDERED: ONDANSETRON 4 MG/2 ML VIAL IV PRN (03:06)
[2017-09-11] MEDS: SODIUM CHLORIDE 0.9% 1,000 ML IV SCH ×3 (04:03→20:42)
[2017-09-11] MEDS: LEVOFLOXACIN INJ 750 MG in PREMIX 1 EACH IV SCH (04:07)
[2017-09-11] MEDS: methylPREDNISolone SOD SUC 40 MG/1 ML VIAL IV SCH ×4 (06:23→23:57)
[2017-09-11 06:42] LABS: Basophils % 0.2 % (0.0-0.8); Eosinophils % 0.5 % (0.00-10.9); Hematocrit 31.9 VOL% (35.7-47.0); Hemoglobin 11.1 GM/DL (12.0-16.0); Immature Granulocytes % 0.2 %; Immature Granulocytes Absolute 0.01 #; Lymphocytes # 0.4 10*3/uL (1.4-4.0); Lymphocytes % 9.2 % (21.3-54.2); Mean Corpuscular HGB Conc 34.8 GM/DL (32-36); Mean Corpuscular Hemoglobin 32 PG (27-34); Mean Corpuscular Volume 92.5 FL (87-102); Mean Platelet Volume 9.9 FL (9.6-12.0); Monocytes # 0.1 10*3/uL (0.11-0.8); Monocytes % 1.4 % (1.7-12.7); Neutrophils # 3.9 10*3/uL (1.4-7.4); Neutrophils % 88.5 % (38.7-73.9); Platelet Count 244 T/CUMM (130-400); Red Blood Count 3.45 MC/CUMM (3.8-5.5); Red Cell Distribution Width 11.9 % (9.3-17.3); White Blood Count 4.4 T/CUMM (4-12)
[2017-09-11 07:07] LABS: Calcium 8.1 MG/DL (8.5-10.1); Osmolality,Calculated 269.5 MOS/KG (273-304); Potassium 3.6 MMOL/L (3.5-5.1)
[2017-09-11] MEDS: PRIMIDONE 50 MG TABLET PO SCH ×4 (08:33→20:37)
[2017-09-11] MEDS: ENOXAPARIN 40 MG/0.4 ML SYRINGE SUBCUT SCH (08:33)
[2017-09-11] MEDS: THEOPHYLLINE ER (24 HR) 200 MG CAPSULE PO SCH ×2 (08:34→18:15)
[2017-09-11] MEDS: PROPRANOLOL 20 MG TABLET PO SCH ×2 (08:34→20:36)
[2017-09-11] MEDS: LOSARTAN/HCTZ 50-12.5 MG TABLET PO SCH (08:36)
[2017-09-11] MEDS ORDERED: FLUTICASONE 50 MCG NASAL SPRAY 16 GM BOTTLE BOTH NARES SCH (09:00)
[2017-09-11] MEDS: ALBUTEROL/IPRATROPIUM 3 ML NEB RESP TX SCH ×3 (09:01→19:43)
[2017-09-11] MEDS: guaiFENesin 200 MG/10 ML UDCUP PO PRN ×2 (10:20→20:37)
[2017-09-11] MEDS ORDERED: ALBUTEROL/IPRATROPIUM 3 ML NEB RESP TX PRN (15:00)
[2017-09-11] MEDS: LIDOCAINE 5% PATCH TRANSDERM SCH (15:16)
[2017-09-11] MEDS: MEROPENEM 500 MG in SYRINGE 1 EACH IV SCH ×2 (15:17→23:59)
[2017-09-11] MEDS: BENZONATATE 100 MG CAPSULE PO SCH ×2 (15:17→20:37)
[2017-09-11] MEDS ORDERED: AMINOPHYLLINE 125 MG in SODIUM CHLORIDE 0.9% 100 ML IV ONE (15:46)
[2017-09-11] MEDS: GABAPENTIN 300 MG CAPSULE PO SCH (20:36)
[2017-09-11] MEDS: MONTELUKAST 10 MG TABLET PO SCH (20:36)
[2017-09-12] MEDS: ALBUTEROL/IPRATROPIUM 3 ML NEB RESP TX SCH ×4 (00:21→19:58)
[2017-09-12] MEDS: LEVOFLOXACIN INJ 750 MG in PREMIX 1 EACH IV SCH (03:55)
[2017-09-12] MEDS: guaiFENesin 200 MG/10 ML UDCUP PO PRN ×3 (04:18→23:05)
[2017-09-12] MEDS: methylPREDNISolone SOD SUC 40 MG/1 ML VIAL IV SCH ×4 (05:47→23:05)
[2017-09-12] MEDS: ENOXAPARIN 40 MG/0.4 ML SYRINGE SUBCUT SCH (09:59)
[2017-09-12] MEDS: LIDOCAINE 5% PATCH TRANSDERM SCH (10:00)
[2017-09-12] MEDS: PRIMIDONE 50 MG TABLET PO SCH ×3 (10:01→20:19)
[2017-09-12] MEDS: LOSARTAN/HCTZ 50-12.5 MG TABLET PO SCH (10:02)
[2017-09-12] MEDS: THEOPHYLLINE ER (24 HR) 200 MG CAPSULE PO SCH ×2 (10:02→17:40)
[2017-09-12] MEDS: BENZONATATE 100 MG CAPSULE PO SCH ×2 (10:02→20:18)
[2017-09-12] MEDS: PROPRANOLOL 20 MG TABLET PO SCH ×2 (10:02→20:18)
[2017-09-12] MEDS: MEROPENEM 500 MG in SYRINGE 1 EACH IV SCH ×2 (10:03→17:40)
[2017-09-12] MEDS: SODIUM CHLORIDE 0.9% 1,000 ML IV SCH (10:08)
[2017-09-12] MEDS: MONTELUKAST 10 MG TABLET PO SCH (20:18)
[2017-09-12] MEDS: GABAPENTIN 300 MG CAPSULE PO SCH (20:18)
[2017-09-13] MEDS: ALBUTEROL/IPRATROPIUM 3 ML NEB RESP TX SCH ×4 (01:23→20:49)
[2017-09-13] MEDS: MEROPENEM 500 MG in SYRINGE 1 EACH IV SCH ×3 (01:58→18:50)
[2017-09-13] MEDS: LEVOFLOXACIN INJ 750 MG in PREMIX 1 EACH IV SCH (03:32)
[2017-09-13] MEDS: SODIUM CHLORIDE 0.9% 1,000 ML IV SCH ×2 (03:36→18:50)
[2017-09-13] MEDS: methylPREDNISolone SOD SUC 40 MG/1 ML VIAL IV SCH ×2 (05:17→13:06)
[2017-09-13 07:03] LABS: Calcium 8.2 MG/DL (8.5-10.1); Osmolality,Calculated 274.8 MOS/KG (273-304); Potassium 3.9 MMOL/L (3.5-5.1)
[2017-09-13] MEDS: BENZONATATE 100 MG CAPSULE PO SCH ×2 (08:40→20:58)
[2017-09-13] MEDS: LOSARTAN/HCTZ 50-12.5 MG TABLET PO SCH (08:41)
[2017-09-13] MEDS: PRIMIDONE 50 MG TABLET PO SCH ×3 (08:41→20:59)
[2017-09-13] MEDS: THEOPHYLLINE ER (24 HR) 200 MG CAPSULE PO SCH ×2 (08:41→17:26)
[2017-09-13] MEDS: PROPRANOLOL 20 MG TABLET PO SCH ×2 (08:42→21:01)
[2017-09-13] MEDS: LIDOCAINE 5% PATCH TRANSDERM SCH (08:42)
[2017-09-13] MEDS: ENOXAPARIN 40 MG/0.4 ML SYRINGE SUBCUT SCH (08:43)
[2017-09-13] MEDS: guaiFENesin 200 MG/10 ML UDCUP PO PRN (13:12)
[2017-09-13] MEDS ORDERED: ZALEPLON 5 MG CAPSULE PO PRN (14:00)
[2017-09-13] MEDS ORDERED: BISACODYL 5 MG TABLET PO PRN (16:15)
[2017-09-13] MEDS: GABAPENTIN 300 MG CAPSULE PO SCH (20:59)
[2017-09-13] MEDS: MONTELUKAST 10 MG TABLET PO SCH (21:01)
[2017-09-14] MEDS: methylPREDNISolone SOD SUC 40 MG/1 ML VIAL IV SCH ×2 (00:44→11:39)
[2017-09-14] MEDS: ALBUTEROL/IPRATROPIUM 3 ML NEB RESP TX SCH ×3 (01:08→12:21)
[2017-09-14] MEDS: MEROPENEM 500 MG in SYRINGE 1 EACH IV SCH ×2 (02:22→11:01)
[2017-09-14] MEDS: LEVOFLOXACIN INJ 750 MG in PREMIX 1 EACH IV SCH (04:04)
[2017-09-14 04:43] LABS: Basophils % 0.4 % (0.0-0.8); Eosinophils # 0.2 10*3/uL (0.0-0.87); Hematocrit 34.2 VOL% (35.7-47.0); Hemoglobin 11.3 GM/DL (12.0-16.0); Immature Granulocytes % 0.4 %; Immature Granulocytes Absolute 0.03 #; Lymphocytes # 0.8 10*3/uL (1.4-4.0); Lymphocytes % 10.3 % (21.3-54.2); Mean Corpuscular Hemoglobin 32 PG (27-34); Mean Corpuscular Volume 96.6 FL (87-102); Mean Platelet Volume 10.7 FL (9.6-12.0); Monocytes # 0.4 10*3/uL (0.11-0.8); Monocytes % 5.1 % (1.7-12.7); Neutrophils # 6.5 10*3/uL (1.4-7.4); Neutrophils % 80.8 % (38.7-73.9); Platelet Count 245 T/CUMM (130-400); Red Blood Count 3.54 MC/CUMM (3.8-5.5); Red Cell Distribution Width 12.3 % (9.3-17.3); White Blood Count 8.1 T/CUMM (4-12)
[2017-09-14 05:12] LABS: Calcium 8.3 MG/DL (8.5-10.1); Magnesium 1.9 MG/DL (1.8-2.4); Osmolality,Calculated 278.4 MOS/KG (273-304); Potassium 3.7 MMOL/L (3.5-5.1)
[2017-09-14] MEDS: PRIMIDONE 50 MG TABLET PO SCH (09:07)
[2017-09-14] MEDS: THEOPHYLLINE ER (24 HR) 200 MG CAPSULE PO SCH (09:07)
[2017-09-14] MEDS: LOSARTAN/HCTZ 50-12.5 MG TABLET PO SCH (09:08)
[2017-09-14] MEDS: PROPRANOLOL 20 MG TABLET PO SCH (09:08)
[2017-09-14] MEDS: BENZONATATE 100 MG CAPSULE PO SCH (09:09)
[2017-09-14] MEDS: ENOXAPARIN 40 MG/0.4 ML SYRINGE SUBCUT SCH (09:10)
[2017-09-14] MEDS: SODIUM CHLORIDE 0.9% 1,000 ML IV SCH (09:13)
[2017-09-14] MEDS: guaiFENesin 200 MG/10 ML UDCUP PO PRN (11:02)
[2017-09-14] MEDS: LIDOCAINE 5% PATCH TRANSDERM SCH (12:15)
[2017-09-14 13:34] VITALS: BP 142/70
[2017-09-14] MEDS ORDERED: methylPREDNISolone 4 MG TABLET PO SCH (21:00)
[2017-09-15] MEDS ORDERED: LEVOFLOXACIN 250 MG TABLET PO SCH (07:00)
== END 2017-09-14 15:10 | disposition swing bed (61) | DRG 191 ==
LOC: N.ED 22:48 → N.EDINP 09-11 03:01 → N.4E 09-11 03:27
PROVIDERS: ADMIT Internal Medicine; ATTEND Internal Medicine